=== PATIENT | female | born 1970 | race Caucasian/White ===

== ENCOUNTER 2017-04-09 16:52 | Emergency (ER) | payer SELFPAY ==
[~2017-04-09] VITALS: Ht 165.1 cm; Wt 97.0 kg
[~2017-04-09 16:52] MED LIST: CITA20 PO
[2017-04-09 16:53] VITALS: BP 184/109; PULSE 92; RESP 15; TEMP 98.5; O2SAT 97
[2017-04-09] MEDS ORDERED: WELLTAB39 PO (18:22)
[2017-04-09] MEDS ORDERED: CEPH-460 PO (19:15)
[2017-04-09] MEDS ORDERED: FLUC150T PO (19:15)
--- NOTE | 2017-04-09 19:15 | PD ---
HPI Chief Complaint: Injury Time Seen by Provider: 18:28 Travel History International Travel<30 days: No Contact w/Intl Traveler<30days: No Traveled to known affect area: No History of Present Illness HPI This is a 46-year-old female with 1 day of redness and burning on her left lower extremity, constant, moderate severity, worsening throughout the day with no associated fevers or chills. She does have a little bit of a headache. She' s never had symptoms like this before. PFSH Past Medical History Narrative Medical Hypertension Asthma: Yes Anxiety: Yes Depression: Yes Diminished Hearing: No Hypertension: Yes Reproductive: Yes (POLYCYSTIC OVARIAN SYNDROME) Influenza Vaccination: No ?: Not LMP: 03/22/2017 : 2 Para: 1 Miscarriage: 1 Ovarian Cysts: Yes Past Surgical History Section: Yes (X 2) Gynecologic Surgery: Yes (CYST REMOVED FROM [facility]) Social History Alcohol Use: Yes (OCCASIONALLY) Tobacco Use: Yes (1 ppd) Substance Use: No Allergies-Medications (Allergen,Severity, Reaction): Coded Allergies: penicillin G (Unverified Allergy, Severe, THROAT SWELLING, 04/09/17) codeine (Unverified Adverse Reaction, Severe, NAUSEA, 04/09/17) Reported Meds & Prescriptions Reported Meds & Active Scripts Active Reported Wellbutrin Xl 24 HR (Bupropion HCl) 300 Mg Tab 300 Mg PO DAILY Review of Systems Except as stated in HPI: all other systems reviewed are Neg Physical Exam Narrative GENERAL:Well appearing, no acute distress SKIN: Small discrete area of erythema and warmth on the anterior aspect of the distal left tibia with no fluctuance or induration HEAD: Atraumatic. Normocephalic. EYES: Pupils equal and round. No injection or drainage. ENT: Moist mucous membranes NECK: Trachea midline. CARDIOVASCULAR: Regular rate and rhythm. No murmur appreciated. RESPIRATORY: Clear to auscultation. Breath sounds equal bilaterally. GASTROINTESTINAL: Abdomen soft, non-tender, nondistended. MUSCULOSKELETAL: No obvious deformities. 2+ left DP pulse with normal capillary refill. NEUROLOGICAL: Awake and alert. No obvious cranial nerve deficits. Moving all extremities. PSYCHIATRIC: Appropriate mood and affect; insight and judgment normal. Data Data Last Documented VS Vital Signs Date Time Temp Pulse Resp B/P (MAP) Pulse Ox O2 Delivery O2 Flow Rate FiO2 04/09/17 17:01 (134) 04/09/17 16:53 98.5 92 15 97 [facility] Medical Decision Making Medical Screen Exam Complete: Yes Emergency Medical Condition: Yes Differential Diagnosis Cellulitis, abscess, sepsis Narrative Course This is a 46-year-old female who presents to the emergency department with a cellulitis involving the distal left lower extremity which is self-limited. She doesn't appear systemically ill. I think she is appropriate for outpatient antibiotics. Diagnosis Primary Impression: Cellulitis Qualified Codes: L03.116 - Cellulitis of left lower limb Patient Instructions: General Instructions Additional Instructions: If you develop fever, increasing redness, warmth, or spreading of your infection , or severe pain return to the emergency department immediately as you may require antibiotics through your IV. Complete your course of antibiotics as prescribed. Med/Other Pt SpecificInfo: Prescription(s) given Scripts Fluconazole (Fluconazole) 150 Mg Tab 150 MG PO ONCE for Infection, #1 TAB 0 Refills Prov: Patti Hancock MD 04/09/17 Cephalexin (Keflex) 500 Mg Capsule 500 MG PO Q6H for Infection for 7 Days, #28 CAP 0 Refills Prov: Patti Hancock MD 04/09/17 Disposition: 01 DISCHARGE HOME Condition: Stable Patti Hancock MD Apr 09, 2017 19:15
== END 2017-04-09 19:54 | disposition home or self-care (01) ==
LOC: NEPD 16:52
DX: L03.116 Cellulitis of left lower limb (principal); R51 Headache; I10 Essential (primary) hypertension; F17.200 Nicotine dependence, unspecified, uncomplicated; Z87.09 Personal history of other diseases of the respiratory system; Z86.59 Personal history of other mental and behavioral disorders; Z87.42 Personal history of other diseases of the female genital tract
CPT/HCPCS: 99284

== ENCOUNTER 2017-04-14 11:03 | Emergency (ER) | payer SELFPAY ==
[~2017-04-14] VITALS: Ht 160 cm; Wt 90.5 kg
[~2017-04-14 11:03] MED LIST changes: +CEPH-460 PO; -CITA20 PO; +FLUC150T PO; +WELLTAB39 PO
[2017-04-14 11:04] VITALS: BP 180/94; TEMP 98.5; O2SAT 98
--- NOTE | 2017-04-14 11:48 | PD ---
HPI Chief Complaint: Injury Time Seen by Provider: 11:21 Travel History International Travel<30 days: No Contact w/Intl Traveler<30days: No Traveled to known affect area: No History of Present Illness HPI 46-year-old female with history of hypertension and asthma here for evaluation and recheck of left lower extremity cellulitis. Patient was seen and treated on 04/09/17 in the emergency department diagnosed with lower extremity cellulitis and discharged home on Keflex. She denies fever or chills. She reports pain improved after starting the antibiotics that when she awoke this morning the pain returned prompting her visit. She reports the area of redness has maintained the same size not improving or worsening. PFSH Past Medical History Asthma: Yes Anxiety: Yes Depression: Yes Cardiovascular Problems: Yes Diminished Hearing: No Hypertension: Yes Reproductive: Yes (POLYCYSTIC OVARIAN SYNDROME) Influenza Vaccination: No ?: Not LMP: 03/22/2017 : 2 Para: 1 Miscarriage: 1 Ovarian Cysts: Yes Past Surgical History Section: Yes (X 2) Gynecologic Surgery: Yes (CYST REMOVED FROM [facility]ARY) Social History Alcohol Use: Yes (OCCASIONALLY) Tobacco Use: Yes (1 ppd) Substance Use: No Allergies-Medications (Allergen,Severity, Reaction): Coded Allergies: penicillin G (Unverified Allergy, Severe, THROAT SWELLING, 04/14/17) codeine (Unverified Adverse Reaction, Severe, NAUSEA, 04/14/17) Reported Meds & Prescriptions Reported Meds & Active Scripts Active Reported Wellbutrin Xl 24 HR (Bupropion HCl) 300 Mg Tab 300 Mg PO DAILY Review of Systems Except as stated in HPI: all other systems reviewed are Neg General / Constitutional: No: Fever Physical Exam Narrative GENERAL: Well-nourished, well-developed patient. SKIN: Focused skin assessment warm/dry. 6 x 3 cm area of mild erythema to the anterior aspect of the left lower extremity. This area is consistent with a mild case of cellulitis. There is no induration or fluctuance. No lymphangitis. The area is tender to palpation. HEAD: Normocephalic. EYES: No scleral icterus. No injection or drainage. NECK: Supple, trachea midline. No JVD or lymphadenopathy. CARDIOVASCULAR: Regular rate and rhythm without murmurs, gallops, or rubs. RESPIRATORY: Breath sounds equal bilaterally. No accessory muscle use. GASTROINTESTINAL: Abdomen soft, non-tender, nondistended. MUSCULOSKELETAL: No cyanosis, or edema. Data Data Last Documented VS Vital Signs Date Time Temp Pulse Resp B/P (MAP) Pulse Ox O2 Delivery O2 Flow Rate FiO2 04/14/17 11:04 98.5 90 14 180/94 (122) 98 MDM Medical Decision Making Medical Screen Exam Complete: Yes Emergency Medical Condition: Yes Differential Diagnosis Abscess, cellulitis, contusion Narrative Course 46-year-old female here for evaluation and recheck of left lower extremity cellulitis. Patient was seen on 04/09/17 and diagnosed with mild case of cellulitis. She was discharged home on Keflex. She reports symptoms improved after starting the antibiotics but when she woke this morning the pain returned prompting her visit. She denies fever or chills. On exam patient has a 6 x 3 cm area of erythema without fluctuance or induration. This is consistent with a mild case of cellulitis. The patient is afebrile, non-tachycardic, nontoxic appearing. I believe the patient is appropriate for outpatient oral antibiotics. She is to stop the bactrim and start clindamycin. She is advised to follow-up with her PCP in 2 days. The area was marked with a wound 10 and advised to return if she developed new or worsening symptoms. Diagnosis Primary Impression: Cellulitis of lower extremity Qualified Codes: L03.116 - Cellulitis of left lower limb Referrals: Primary Care Physician Additional Instructions: Stop the Bactrim DS & start Clindamycin follow up with your primary doctor in 2 days for recheck return if you develop fever, chills, increasing pain or the area of redness spreads significantly. Scripts Clindamycin (Clindamycin) 300 Mg Cap 300 MG PO Q6H for Infection for 10 Days, #40 CAP 0 Refills Prov: Annetta Sumner 04/14/17 Disposition: 01 DISCHARGE HOME Condition: Stable Annetta Sumner Apr 14, 2017 11:48
[2017-04-14] MEDS ORDERED: CLIN1CAP6 PO (11:55)
== END 2017-04-14 12:17 | disposition home or self-care (01) ==
LOC: NEPD 11:03
DX: L03.116 Cellulitis of left lower limb (principal); I10 Essential (primary) hypertension; J45.909 Unspecified asthma, uncomplicated; F41.9 Anxiety disorder, unspecified; F32.9 Major depressive disorder, single episode, unspecified; Z72.0 Tobacco use
CPT/HCPCS: 99283